=== PATIENT | female | born 1970 | race Caucasian/White ===

== ENCOUNTER 2018-10-08 19:48 | Emergency (ER) | payer OTHER ==
[~2018-10-08] VITALS: Ht 157.5 cm; Wt 77.3 kg
[2018-10-08 20:08] VITALS: Ht 157.5 cm; Wt 77.3 kg
[2018-10-08] MEDS ORDERED: MULTI-DAY VITAM1 TAB PO (20:11)
[2018-10-08] MEDS ORDERED: VOLTAREN75 MG PO (21:58)
[2018-10-08] MEDS ORDERED: OMEPRAZOLE20 M1 PO (21:58)
[2018-10-08 22:35] VITALS: BP 188/92
== END 2018-10-08 22:35 | disposition home or self-care (01) ==
LOC: D.ER 19:48
DX: M54.5 Low back pain (principal); V43.52XA Car driver injured in collision with other type car in traffic accident, initial encounter; Y92.410 Unspecified street and highway as the place of occurrence of the external cause; Y93.89 Activity, other specified